=== PATIENT | female | born 1990 | race Caucasian/White ===

== ENCOUNTER 2021-01-08 23:11 | Emergency (ER) | payer OTHER ==
[~2021-01-08] VITALS: Ht 157.5 cm; Wt 61.2 kg
[~2021-01-08 23:11] MED LIST: ACEBUTCAFT PO; ACET325 PO; AMOX875 PO; AZIT250 PO; CEFD300 PO; CIPR500 PO; Cyclobenzaprine5 MG PO; Cymbalta60 MG PO; DOXY100 PO; DULO30; HYDACE5 PO; IBUP600 PO; IBUP800 PO; LITH300C; LITH300C PO; METR500 PO; MULVITMINE PO; OXYACE5T PO; PROM25 PO; PROM25S PR; Percocet 5-3251 EACH PO; RXOXYACE PO; TRAM50 PO; Zofran4 MG PO
== END 2021-01-09 00:22 | disposition home or self-care (01) ==
LOC: ER 23:11
DX: Z46.89 Encounter for fitting and adjustment of other specified devices (principal); Z88.5 Allergy status to narcotic agent; Z79.3 Long term (current) use of hormonal contraceptives; Z88.8 Allergy status to other drugs, medicaments and biological substances; Z79.899 Other long term (current) drug therapy; F17.200 Nicotine dependence, unspecified, uncomplicated
CPT/HCPCS: 29125; 29705; 99282-25

== ENCOUNTER 2021-11-07 11:55 | Emergency (ER) | payer OTHER ==
[~2021-11-07] VITALS: Ht 157.5 cm; Wt 61.2 kg
[2021-11-07] MEDS ORDERED: KETO10 PO (13:33)
== END 2021-11-07 13:58 | disposition home or self-care (01) ==
LOC: ER 11:55
DX: I73.00 Raynaud's syndrome without gangrene (principal); F17.200 Nicotine dependence, unspecified, uncomplicated; Z88.5 Allergy status to narcotic agent
CPT/HCPCS: 93922; 99284-25

== ENCOUNTER 2022-02-01 01:37 | Emergency (ER) | payer OTHER ==
[~2022-02-01] VITALS: Ht 170.2 cm; Wt 63.5 kg
[~2022-02-01 01:37] MED LIST changes: +KETO10 PO
[2022-02-01 02:06] LABS: BASOPHILS ABSOLUTE AUTO 0.06 K/mm3 (0.00-0.23); BASOPHILS PERCENT AUTO 1 % (0-2); EOSINOPHILS ABSOLUTE AUTO 0.27 K/mm3 (0.00-0.68); EOSINOPHILS PERCENT AUTO 3 % (0-6); IMMATURE GRAN ABSOLUTE AUTO 0.03 K/mm3 (0.00-0.10); IMMATURE GRAN PERCENT AUTO 0 % (0-1); LYMPHOCYTES ABSOLUTE AUTO 3.05 K/mm3 (0.84-5.20); LYMPHOCYTES PERCENT AUTO 39 % (21-46); MONOCYTES ABSOLUTE AUTO 0.56 K/mm3 (0.16-1.47); MONOCYTES PERCENT AUTO 7 % (4-13); Mean Corpuscular HGB 31.6 pg (26.0-34.0); Mean Corpuscular HGB Conc 33.3 g/dL (31.5-36.5); Mean Corpuscular Volume 95 fL (80-100); Mean Platelet Volume 11.7 fL (9.1-12.4); NEUTROPHILS ABSOLUTE AUTO 3.95 K/mm3 (1.96-9.15); NEUTROPHILS PERCENT AUTO 50 % (41-73); Platelet Count 175 K/mm3 (150-400); RDW Standard Deviation 49.1 fL (35.1-46.3); Red Blood Cell Count 4.43 M/mm3 (3.80-5.20); White Blood Cell Count 7.92 K/mm3 (4.00-11.30)
[2022-02-01 02:19] LABS: Albumin, Blood 3.5 g/dL (3.4-5.0); Albumin/Globulin Ratio 0.8 (0.8-1.8); Bilirubin, Total 0.1 mg/dL (0.1-1.0); Bun/Creatinine Ratio 14.9 (12.0-20.0); Calcium, Blood 8.4 mg/dL (8.5-10.1); Creatinine, Blood 0.87 mg/dL (0.40-1.00); Globulin, Blood 4.2 g/dL (2.2-4.0); Potassium, Blood 3.6 mmol/L (3.5-5.5); Total Protein, Blood 7.7 g/dL (6.4-8.2)
== END 2022-02-01 05:45 | disposition left against medical advice (07) ==
LOC: ER 01:37
PROVIDERS: Student in an Organized Health Care Education/Training Program
DX: F10.129 Alcohol abuse with intoxication, unspecified (principal); F17.210 Nicotine dependence, cigarettes, uncomplicated; Y90.6 Blood alcohol level of 120-199 mg/100 ml; Z53.21 Procedure and treatment not carried out due to patient leaving prior to being seen by health care provider; Z88.5 Allergy status to narcotic agent; Z88.8 Allergy status to other drugs, medicaments and biological substances; Z79.899 Other long term (current) drug therapy
CPT/HCPCS: 70450; 80053; 84703; 85025; 99284-25; G0480

== ENCOUNTER 2022-05-05 20:39 | Emergency (ER) | payer OTHER ==
[~2022-05-05] VITALS: Ht 157.5 cm; Wt 59.0 kg
[2022-05-05 21:33] LABS: BASOPHILS ABSOLUTE AUTO 0.06 K/mm3 (0.00-0.23); BASOPHILS PERCENT AUTO 1 % (0-2); EOSINOPHILS ABSOLUTE AUTO 0.33 K/mm3 (0.00-0.68); EOSINOPHILS PERCENT AUTO 4 % (0-6); Hematocrit 41.8 % (33.0-51.0); Hemoglobin 13.9 g/dL (11.5-16.0); IMMATURE GRAN ABSOLUTE AUTO 0.02 K/mm3 (0.00-0.10); IMMATURE GRAN PERCENT AUTO 0 % (0-1); LYMPHOCYTES ABSOLUTE AUTO 3.75 K/mm3 (0.84-5.20); LYMPHOCYTES PERCENT AUTO 42 % (21-46); MONOCYTES ABSOLUTE AUTO 0.56 K/mm3 (0.16-1.47); MONOCYTES PERCENT AUTO 6 % (4-13); Mean Corpuscular HGB 30.4 pg (26.0-34.0); Mean Corpuscular HGB Conc 33.3 g/dL (31.5-36.5); Mean Corpuscular Volume 92 fL (80-100); Mean Platelet Volume 11.5 fL (9.1-12.4); NEUTROPHILS ABSOLUTE AUTO 4.17 K/mm3 (1.96-9.15); NEUTROPHILS PERCENT AUTO 47 % (41-73); Platelet Count 231 K/mm3 (150-400); RDW Coefficient Variation 12.8 % (11.7-14.2); RDW Standard Deviation 43.1 fL (35.1-46.3); Red Blood Cell Count 4.57 M/mm3 (3.80-5.20); White Blood Cell Count 8.89 K/mm3 (4.00-11.30)
[2022-05-05 21:54] LABS: Alanine Aminotransfer (ALT/SGP 19 U/L (12-78); Albumin, Blood 3.8 g/dL (3.4-5.0); Alk Phos 70 U/L (50-136); Anion Gap 6 mmol/L (6-16); Aspartate Aminotrans (AST/SGOT 17 U/L (12-37); Beta HCG, Quantitative, Serum <1 mIU/mL (0-3); Bilirubin, Total 0.3 mg/dL (0.1-1.0); Blood Urea Nitrogen 7 mg/dL (8-24); Bun/Creatinine Ratio 9.7 (12.0-20.0); CO2, Blood 26 mmol/L (21-32); Chloride, Blood 106 mmol/L (98-108); Creatinine, Blood 0.72 mg/dL (0.40-1.00); Globulin, Blood 3.9 g/dL (2.2-4.0); Glomerular Filtration Rate 114 (60-); Glucose, Blood 110 mg/dL (70-99); Potassium, Blood 3.6 mmol/L (3.5-5.5); Sodium, Blood 138 mmol/L (136-145); Total Protein, Blood 7.7 g/dL (6.4-8.2)
[2022-05-05 23:08] LABS: Source, Urine Voided
[2022-05-05 23:13] LABS: Bilirubin, Urine Neg (Neg); Blood, Urine Neg (Neg); Glucose Qualitative, Urine Neg (Neg); Ketones, Urine Neg (Neg); Leukocyte Esterase, Urine 2+ (Neg); Nitrite, Urine Neg (Neg); Protein, Urine Neg (Neg); Specific Gravity, Urine 1.005 (1.003-1.022); Urobilinogen, Urine NORM (Normal); pH, Urine 6.5 (5.0-8.0)
[2022-05-05 23:34] LABS: Appearance, Urine Hazy (Clear); Color, Urine Yellow (P-Yellow)
[2022-05-05 23:36] LABS: Bacteria Mod /hpf; Mucus Light (0-Heavy); Red Blood Cells, Urine Not Seen /hpf (0-2); Squamous Epithelial Cells Few /hpf (Few); White Blood Cells, Urine 0-2 /hpf (0-5)
== END 2022-05-06 | disposition home or self-care (01) ==
LOC: ER 20:39
PROVIDERS: Emergency Medicine; Physician Assistant
DX: R10.2 Pelvic and perineal pain (principal); F17.210 Nicotine dependence, cigarettes, uncomplicated; Z79.899 Other long term (current) drug therapy; Z88.5 Allergy status to narcotic agent; Z88.8 Allergy status to other drugs, medicaments and biological substances; Z98.51 Tubal ligation status
CPT/HCPCS: 36415; 76801; 76817; 80053; 81001; 84702; 85025; 86900; 86901; 87086; 96374; 99284-25; J2405

== ENCOUNTER → 2022-05-14 | Outpatient (CLI) | payer OTHER | END | disposition home or self-care (01) | LOC: LAB SHORT 12:58 | DX: R11.2 Nausea with vomiting, unspecified (principal) | CPT/HCPCS: 84702 ==

== ENCOUNTER → 2022-10-20 | Outpatient (CLI) | payer OTHER ==
[2022-10-21 12:56] LABS: Candida species (DNA Probe) Negative (NEGATIVE); G. vaginalis (DNA Probe) Positive (NEGATIVE); T. vaginalis (DNA Probe) Negative (NEGATIVE)
[2022-10-23 02:09] LABS: CHLAMYDIA TRACHOMATIS, NAA Negative (Negative)
== END | disposition home or self-care (01) ==
LOC: LAB 16:41 → LAB SHORT 16:41
PROVIDERS: Physician Assistant
DX: R10.2 Pelvic and perineal pain (principal)
CPT/HCPCS: 87480; 87491; 87510; 87591; 87660

== ENCOUNTER 2022-10-25 23:17 | Emergency (ER) | payer OTHER ==
[~2022-10-25] VITALS: Ht 157.5 cm; Wt 63.5 kg
[2022-10-26] MEDS ORDERED: IBUP400 PO (01:00)
[2022-10-26] MEDS ORDERED: OXYC5 PO (01:00)
[2022-10-26] MEDS ORDERED: ACET500 PO (01:00)
== END 2022-10-26 01:41 | disposition home or self-care (01) ==
LOC: ER 23:17
DX: S52.571A Other intraarticular fracture of lower end of right radius, initial encounter for closed fracture (principal); S52.611A Displaced fracture of right ulna styloid process, initial encounter for closed fracture; F17.210 Nicotine dependence, cigarettes, uncomplicated; W18.09XA Striking against other object with subsequent fall, initial encounter; Z88.5 Allergy status to narcotic agent; Z88.8 Allergy status to other drugs, medicaments and biological substances; Z79.899 Other long term (current) drug therapy
CPT/HCPCS: 29125; 73090; 73100; 96372; 99283-25; A9270; J1885

== ENCOUNTER → 2023-06-11 | Outpatient (CLI) | payer OTHER ==
[~2023-06-11] MED LIST changes: +ACET500 PO; +IBUP400 PO; +OXYC5 PO
== END ==
LOC: LAB 16:59 → LAB SHORT 16:59
DX: N64.52 Nipple discharge (principal)
CPT/HCPCS: 87070; 87205

== ENCOUNTER 2023-07-17 19:21 | Emergency (ER) | payer OTHER ==
[~2023-07-17] VITALS: Ht 157.5 cm; Wt 63.5 kg
[2023-07-17 19:57] VITALS: BP 150/88
== END 2023-07-17 21:09 | disposition home or self-care (01) ==
LOC: ER 19:21
DX: M25.531 Pain in right wrist (principal); F17.210 Nicotine dependence, cigarettes, uncomplicated; F31.9 Bipolar disorder, unspecified; Z87.81 Personal history of (healed) traumatic fracture; Z79.899 Other long term (current) drug therapy; Z88.5 Allergy status to narcotic agent; Z88.1 Allergy status to other antibiotic agents; Z88.8 Allergy status to other drugs, medicaments and biological substances
CPT/HCPCS: 29125; 99282-25

== ENCOUNTER 2023-08-04 21:29 | Inpatient (IN) | payer OTHER ==
[~2023-08-04] VITALS: Ht 157.5 cm; Wt 63.7 kg
[2023-08-04 22:20] LABS: BASOPHILS ABSOLUTE AUTO 0.03 K/mm3 (0.00-0.23); BASOPHILS PERCENT AUTO 0 % (0-2); EOSINOPHILS ABSOLUTE AUTO 0.19 K/mm3 (0.00-0.68); EOSINOPHILS PERCENT AUTO 3 % (0-6); Hemoglobin 14.6 g/dL (11.5-16.0); Mean Corpuscular HGB 30.4 pg (26.0-34.0); Mean Corpuscular HGB Conc 32.4 g/dL (31.5-36.5); Mean Corpuscular Volume 94 fL (80-100); Mean Platelet Volume 11.5 fL (9.1-12.4); Platelet Count 211 K/mm3 (150-400); RDW Coefficient Variation 13.2 % (11.7-14.2); RDW Standard Deviation 45.5 fL (35.1-46.3)
[2023-08-04 22:27] LABS: IMMATURE GRAN ABSOLUTE AUTO 0.02 K/mm3 (0.00-0.10); IMMATURE GRAN PERCENT AUTO 0 % (0-1); LYMPHOCYTES ABSOLUTE AUTO 3.24 K/mm3 (0.84-5.20); LYMPHOCYTES PERCENT AUTO 43 % (21-46); MONOCYTES ABSOLUTE AUTO 0.42 K/mm3 (0.16-1.47); MONOCYTES PERCENT AUTO 6 % (4-13); NEUTROPHILS PERCENT AUTO 49 % (41-73)
[2023-08-04 22:43] LABS: Ethanol (Alcohol), Blood, Med 282 mg/dL
[2023-08-04 22:47] LABS: Alanine Aminotransfer (ALT/SGP 19 U/L (12-78); Albumin, Blood 3.9 g/dL (3.4-5.0); Albumin/Globulin Ratio 0.9 (0.8-1.8); Alk Phos 64 U/L (50-136); Anion Gap 5 mmol/L (6-16); Aspartate Aminotrans (AST/SGOT 14 U/L (12-37); Bilirubin, Total <0.1 mg/dL (0.1-1.0); Blood Urea Nitrogen 12 mg/dL (8-24); Bun/Creatinine Ratio 16.2 (12.0-20.0); CO2, Blood 24 mmol/L (21-32); Calcium, Blood 8.6 mg/dL (8.5-10.1); Chloride, Blood 114 mmol/L (98-108); Creatinine, Blood 0.74 mg/dL (0.40-1.00); Globulin, Blood 4.4 g/dL (2.2-4.0); Glomerular Filtration Rate 109 (60-); Glucose, Blood 105 mg/dL (70-99); Potassium, Blood 3.9 mmol/L (3.5-5.5); Sodium, Blood 143 mmol/L (136-145); Total Protein, Blood 8.3 g/dL (6.4-8.2)
[2023-08-05 03:29] LABS: Source, Urine Clean Catch
[2023-08-05 03:33] LABS: Bilirubin, Urine Neg (Neg); Blood, Urine Neg (Neg); Glucose Qualitative, Urine Neg (Neg); Ketones, Urine Neg (Neg); Leukocyte Esterase, Urine Neg (Neg); Nitrite, Urine Neg (Neg); Protein, Urine Neg (Neg); Urobilinogen, Urine NORM (Normal)
[2023-08-05 03:46] LABS: Appearance, Urine Clear (Clear); Color, Urine Yellow (P-Yellow)
[2023-08-05 04:00] LABS: U Amphetamine Screen Not Detected; U Barbituate Screen Not Detected; U Benzodiazapine Screen Not Detected; U Buprenorphine Screen Not Detected; U Cannabinoids Screen Not Detected; U Cocaine Screen Not Detected; U Methadone Screen Not Detected; U Methamphetamine Screen Not Detected; U Opiates Screen Not Detected; U Oxycodone Screen Not Detected; U Phencyclidine Screen Not Detected
[2023-08-05 18:43] VITALS: BP 142/95
[2023-08-05] MEDS ORDERED: DULO60 PO (19:28)
[2023-08-05 19:32] VITALS: BP 143/91
[2023-08-06 05:08] VITALS: BP 146/89
--- NOTE | 2023-08-06 05:59 | NUR ---
SHIFT SUMMARY PT IS A&OX4, PLEASANT AND COOPERATIVE WITH ALL CARES. VSS, ELEVATED BP, ON RA. NSR IN THE 70'S-80'S PER TELEMETRY. HAS SOME EXPRESIVE APHASIA AND STUTTERING WHEN COMMUNICATING. NO FACIAL DROOP. STRENGTHS EQUAL IN ALL EXTREMETIES. C/O AN EXTREME FRENCH. HAS FREQUENT MIGRAINES, THIS HAS BEEN ONGOING FOR LAST 3 DAYS. NOTHING SHE HAS TAKEN OVER THE COUNTER AT HOME HAS HELPED. SHE WENT FOR A MRI AROUND 2200. I GAVE HER SOME ATIVAN PRIOR TO GOING D/T BEING CLAUSTROPHOBIC AND HAVING SUCH A BAD FRENCH. PT IS INDEPENDENT IN ROOM. ARA AT BEDSIDE T/O NOC ATTENDING TO PT. BED IN LOWEST POSITION, CALL LIGHT WITHIN REACH. SITTER AT BEDSIDE FOR SI, PT DENIES THIS. SLEPT T/O NOC.
[2023-08-06 07:36] VITALS: BP 140/78
[2023-08-06 07:39] LABS: BASOPHILS ABSOLUTE AUTO 0.05 K/mm3 (0.00-0.23); BASOPHILS PERCENT AUTO 1 % (0-2); EOSINOPHILS ABSOLUTE AUTO 0.21 K/mm3 (0.00-0.68); EOSINOPHILS PERCENT AUTO 4 % (0-6); Hematocrit 39.7 % (33.0-51.0); Hemoglobin 13.1 g/dL (11.5-16.0); IMMATURE GRAN ABSOLUTE AUTO 0.01 K/mm3 (0.00-0.10); IMMATURE GRAN PERCENT AUTO 0 % (0-1); LYMPHOCYTES ABSOLUTE AUTO 2.35 K/mm3 (0.84-5.20); LYMPHOCYTES PERCENT AUTO 39 % (21-46); MONOCYTES ABSOLUTE AUTO 0.64 K/mm3 (0.16-1.47); MONOCYTES PERCENT AUTO 11 % (4-13); Mean Corpuscular HGB 30.8 pg (26.0-34.0); Mean Corpuscular Volume 93 fL (80-100); Mean Platelet Volume 11.9 fL (9.1-12.4); NEUTROPHILS ABSOLUTE AUTO 2.77 K/mm3 (1.96-9.15); NEUTROPHILS PERCENT AUTO 46 % (41-73); Platelet Count 181 K/mm3 (150-400); RDW Standard Deviation 44.3 fL (35.1-46.3); Red Blood Cell Count 4.26 M/mm3 (3.80-5.20); White Blood Cell Count 6.03 K/mm3 (4.00-11.30)
[2023-08-06 07:59] LABS: Albumin, Blood 3.1 g/dL (3.4-5.0); Albumin/Globulin Ratio 0.8 (0.8-1.8); Bilirubin, Total 0.1 mg/dL (0.1-1.0); Calcium, Blood 8.8 mg/dL (8.5-10.1); Creatinine, Blood 0.77 mg/dL (0.40-1.00); Globulin, Blood 3.8 g/dL (2.2-4.0); Potassium, Blood 4.1 mmol/L (3.5-5.5); Total Protein, Blood 6.9 g/dL (6.4-8.2)
--- NOTE | 2023-08-06 14:21 | NUR ---
MULTIPLE PHONE CALLS THIS AM TO DR PAIGE AND DR ELLIOTT REGARDING PATIENT AND HER REQUESTS. PAIN 8/10 THIS AM, DR PAIGE NOTIFIED, TORADOL AND TYLENOL ORDERED, WITH LITTLE RELIEF TO 7.5/10. DR PAIGE NOTIFIED AND OXYCODONE ORDERED, MEDICATION GIVE, PAIN DOWN TO 5/10 BUT PATIENT NOW NAUSEOUS, DR PAIGE ORDERED ZOFRAN IV, MEDICATION GIVEN. PATIENT REPORTS RELIEF AND ABLE TO EAT LUNCH. PATIENT AGREABLE WITH CARE TODAY EXCEPT SHE DECLINES LOVENOX SHOT, STATES SHE DOES NOT LIKE TO BE POKED WITH NEEDLES. PATIENT CONTINUES TO REQUEST THE MD HOLD BE LIFTED. DR ELLIOTT STATES HOLD STILL NEEDED WHEN I SPOKE WITH HIM THIS MORNING. PATIENT NOTIFIED AND REQUESTS TO SPEAK WITH DR BUI. DR ELLIOTT NOTIFIED AND STATES HE WILL BE IN SOMETIME AFTER LUNCH.
[2023-08-06 15:40] VITALS: BP 149/96
--- NOTE | 2023-08-06 18:04 | NUR ---
SHIFT SUMMARY PATIENT HAS BEEN AGREABLE AND COOPERATIVE WITH CARE. SHE HAS SOME ANXIETY REGARDING THE HOLD WHICH WAS PLACED YESTERDAY. PATIENT WITH CONTINUED MIGRAINE TODAY WHICH DECREASES WITH OXYCODONE/TYLENOL BUT ONLY FROM 03/31 TO 11/28, AND PATIENT GETS NAUSEOUS AFTER, REQUIRING ZOFRAN. PATIENT ALSO HAS HAD LITTLE APPETITE AND REPORTS NOT EATING MUCH MORE THAN EGGS TODAY. FIRST AID ATTENDANT RECCOMENDED EATING PRIOR TO MEDICATIONS NEXT TIME TO SEE IF IT HELPS PREVENT THE NAUSEA. PATIENT VERBALIZES UNDERSTANDING. PATIENT TRYING YOGURT CURRENTLY. DR DOS SANTOS ARRIVED THIS AFTERNOON, PATIENT REQUESTING PRESENCE OF ANOTHER PERSON FOR VISIT. THIS FIRST AID ATTENDANT SAT IN FOR VISIT. DR ELLIOTT EXPLAINED TO PATIENT HIS CONCERNS WITH HER SAFETY AND WHY HE PUT HER ON A HOLD. PATIENT REQUESTED TO BE TAKEN OFF THE HOLD AND DR BORJAS WAS AGREABLE DUE TO PAITIENT SYMPTOMS RESOLVING COMPARED TO YESTERDAY. PATIENT CONTINUES WITH OCCAISIONAL STUTTER, AND MIGRAINE. ALL OTHER NEURO CHECKS WIHIN NORMAL LIMITS. BED IN LOW POSITION, SITTER CALLED OFF AT END OF HOLD, CALL LIGHT IN REACH. PATIENT ABLE TO MAKE NEEDS KNOWN.
[2023-08-06 18:29] LABS: Magnesium, Blood 2.1 mg/dL (1.6-2.4); Phosphorus, Blood 3.9 mg/dL (2.5-4.9)
[2023-08-06 20:27] VITALS: BP 151/96
[2023-08-07 05:04] VITALS: BP 124/92
--- NOTE | 2023-08-07 06:11 | NUR ---
SHIFT SUMMARY PT IS A&OX4. VSS, ELEVATED BP ON RA. C/O 02/28 HEADACHE PAIN. MANAGED WITH PRN MEDICATIONS PER EMAR. TOLERATING A REGULAR DIET. UP AD ALYSSA INDEPENDENTLY IN ROOM AND FLOOR. PT ASKED IF SHE COULD GO OUTSIDE, I TOLD HER THAT WASN'T ALLOWED. SHE UNDERSTOOD AND WAS COOPERATIVE WITH RULES. VOIDING IN BR. AT BEDSIDE T/O NOC. BED IN LOWEST POSITION, CALL LIGHT WITHIN REACH.
[2023-08-07 06:34] LABS: Hematocrit 40.2 % (33.0-51.0); Hemoglobin 13.3 g/dL (11.5-16.0); Mean Corpuscular HGB 30.4 pg (26.0-34.0); Mean Corpuscular HGB Conc 33.1 g/dL (31.5-36.5); Mean Corpuscular Volume 92 fL (80-100); Mean Platelet Volume 11.9 fL (9.1-12.4); Platelet Count 180 K/mm3 (150-400); RDW Coefficient Variation 12.7 % (11.7-14.2); RDW Standard Deviation 42.9 fL (35.1-46.3); Red Blood Cell Count 4.37 M/mm3 (3.80-5.20); White Blood Cell Count 5.95 K/mm3 (4.00-11.30)
[2023-08-07 06:59] LABS: Bun/Creatinine Ratio 19.2 (12.0-20.0); Calcium, Blood 8.8 mg/dL (8.5-10.1); Creatinine, Blood 0.78 mg/dL (0.40-1.00); Potassium, Blood 4.2 mmol/L (3.5-5.5)
[2023-08-07 07:37] VITALS: BP 127/88
[2023-08-07 08:56] LABS: BASOPHILS PERCENT MAN 0 % (0-2); EOSINOPHILS ABSOLUTE MAN 0.35 K/mm3 (0.00-0.68); EOSINOPHILS PERCENT MAN 6 % (0-6); LYMPHOCYTES ABSOLUTE MAN 3.03 K/mm3 (0.84-5.20); LYMPHOCYTES PERCENT MAN 51 % (21-46); MONOCYTES ABSOLUTE MAN 0.77 K/mm3 (0.16-1.47); MONOCYTES PERCENT MAN 13 % (4-13); NEUTROPHILS ABSOLUTE MAN 1.78 K/mm3 (1.96-9.15); SEG NEUTROPHILS PERCENT MAN 30 % (41-73); TOTAL CELLS COUNTED 100
--- NOTE | 2023-08-07 11:18 | NUR ---
FOLIC ACID INFUSING WHEN IV BECAME OCCLUDED, UNABLE TO KEEP IV IN. DR PAIGE MADE AWARE AND HE ORDERED ORAL FOLIC ACID AND THIAMINE INSTEAD, AND TO REPLACE IV.
[2023-08-07 11:39] VITALS: BP 145/91
[2023-08-07 12:29] VITALS: BP 146/94
[2023-08-07 13:18] VITALS: BP 142/92
[2023-08-07 14:51] LABS: BASOPHILS ABSOLUTE AUTO 0.04 K/mm3 (0.00-0.23); BASOPHILS PERCENT AUTO 1 % (0-2); EOSINOPHILS ABSOLUTE AUTO 0.17 K/mm3 (0.00-0.68); EOSINOPHILS PERCENT AUTO 2 % (0-6); Hematocrit 40.1 % (33.0-51.0); Hemoglobin 13.6 g/dL (11.5-16.0); IMMATURE GRAN ABSOLUTE AUTO 0.01 K/mm3 (0.00-0.10); IMMATURE GRAN PERCENT AUTO 0 % (0-1); LYMPHOCYTES ABSOLUTE AUTO 2.38 K/mm3 (0.84-5.20); LYMPHOCYTES PERCENT AUTO 34 % (21-46); MONOCYTES ABSOLUTE AUTO 0.63 K/mm3 (0.16-1.47); MONOCYTES PERCENT AUTO 9 % (4-13); Mean Corpuscular HGB Conc 33.9 g/dL (31.5-36.5); Mean Corpuscular Volume 91 fL (80-100); Mean Platelet Volume 11.7 fL (9.1-12.4); NEUTROPHILS ABSOLUTE AUTO 3.88 K/mm3 (1.96-9.15); NEUTROPHILS PERCENT AUTO 55 % (41-73); Platelet Count 190 K/mm3 (150-400); RDW Coefficient Variation 12.6 % (11.7-14.2); RDW Standard Deviation 42.8 fL (35.1-46.3); Red Blood Cell Count 4.39 M/mm3 (3.80-5.20); White Blood Cell Count 7.11 K/mm3 (4.00-11.30)
[2023-08-07 15:01] LABS: Base Excess Venous 1.9 mmol/L; Bicarbonate Venous 26.1 mmol/L (24.0-30.0); PCO2 Venous 37.9 mmHg (38-42); pH Blood Venous 7.44 (7.34-7.37)
[2023-08-07 15:24] LABS: Albumin, Blood 3.4 g/dL (3.4-5.0); Albumin/Globulin Ratio 0.8 (0.8-1.8); Bilirubin, Total 0.2 mg/dL (0.1-1.0); Bun/Creatinine Ratio 13.1 (12.0-20.0); Calcium, Blood 8.4 mg/dL (8.5-10.1); Magnesium, Blood 2.1 mg/dL (1.6-2.4); Phosphorus, Blood 2.8 mg/dL (2.5-4.9); Thyroid Stimulating Hormone 1.13 uIU/mL (0.360-4.800); Total Protein, Blood 7.4 g/dL (6.4-8.2)
[2023-08-07 16:18] LABS: Influenza A, PCR NEGATIVE (NEGATIVE); Influenza B, PCR NEGATIVE (NEGATIVE); Resp Syncytial Virus, PCR NEGATIVE (NEGATIVE); SARS-Cov-2 (COVID-19) PCR, MMC NEGATIVE (NEGATIVE)
--- NOTE | 2023-08-07 18:42 | NUR ---
SHIFT SUMMARY PATIENT WITH HEADACHE TODAY, MANAGED WITH OXYCODONE. THIS AFTERNOON VERAPAMIL ORDERED DUE TO HIGHER BLOOD PRESSURE. PATIENT MEDICATED WITH IT AND NO INITIAL SIDE EFFECTS. HER STUTTER WAS ALMOST NON EXISTENT FIRST HALF OF DAY. THIS AFTERNOON HOWEVER, RAPID RESPONSE WAS CALLED DUE TO NEUROLOICAL CHANGES SUDDEN ONSET. HEAD AND NECK CTA, BLOOD WORK, COVID SCREEN, AND MRI ORDERED BY DR PAIGE AND ROBE. PHONE CALL WAS PLACED TO DR PAIGE ABOUT PATIENT HISTORY OF CLAUSTROPHOBIA AND PATIENT REQUESTING ATIVAN JUST BEFORE MRI. ORDERED OKAY OF ONE TIME ATIVAN TO GIVE FROM [facility] ORDER. 2MG ATIVAN GIVEN. BED IN LOW POSITION, CALL LIGHT IN REACH. OF NOW PATIENT STATES HER HEADACHE IS ITS LOWEST IN DAYS AT 2/10, SHE STATES "ITS GOOD RIGHT NOW ACTUALLY". AT BEDSIDE.
--- NOTE | 2023-08-07 21:35 | NUR ---
HOSPITALIST CALLED WITH UPDATE FOR POSSIBLE PT TRANSFER TO [facility]. AWAITING HOSPITALIST CALL BACK AFTER SPEAKING TO FACILITY. UPDATE GIVEN ON PT NEURO STATUS PUPILS 4MM AND SLUGGISH, BUT NO L SIDED DEFICITS OR APHASIA CURRENTLY.
[2023-08-07 21:57] VITALS: BP 118/71
--- NOTE | 2023-08-07 23:07 | NUR ---
NOTIFIED BY HOSPITALIST THAT BED AVAILABLE AT [facility] IN [place] POOL FOR PT TO TRANSFER. PT REMAINS STABLE. HOSPITALIST WANTS TO BE NOTIFIED OF TRANSFER MD NAME SO TRANSFER ORDER CAN BE INITIATED.
[2023-08-08 00:01] VITALS: BP 118/71
[2023-08-08 00:35] VITALS: BP 118/71
--- NOTE | 2023-08-08 00:55 | NUR ---
PT BEING [place] TRANSFERRED TO [facility] IN [place]. REPORT GIVEN TO QUEENIE SERRANO @ 0028.
--- NOTE | 2023-08-08 01:03 | NUR ---
[facility] PICKED PT UP @ 0100 FOR TRANSPORT TO [facility] IN [place]. PT LEFT WITH ALL BELONGINGS WITH THEM.
== END 2023-08-08 01:03 | disposition short-term general hospital (02) | DRG 103 ==
LOC: ER 21:29 → MEDS 21:30
PROVIDERS: Emergency Medicine; Family Medicine; Student in an Organized Health Care Education/Training Program; ADMIT Internal Medicine
PROC: HZ2ZZZZ Detoxification Services for Substance Abuse Treatment (ICD-10-PCS; principal; 2023-08-05)
DX: G43.409 Hemiplegic migraine, not intractable, without status migrainosus (principal); R47.01 Aphasia; F31.9 Bipolar disorder, unspecified; F43.12 Post-traumatic stress disorder, chronic; F10.10 Alcohol abuse, uncomplicated; Z71.6 Tobacco abuse counseling; Z91.51 Personal history of suicidal behavior; Z88.8 Allergy status to other drugs, medicaments and biological substances; Z88.5 Allergy status to narcotic agent; Z88.1 Allergy status to other antibiotic agents; Z72.0 Tobacco use; Z11.52 Encounter for screening for COVID-19; R41.3 Other amnesia; Z79.899 Other long term (current) drug therapy
CPT/HCPCS: 0241U; 36415; 70450; 70496; 70498; 70551; 70553; 80048; 80053; 81001; 81003; 81025; 82803; 82947; 83735; 84100; 84443; 85025; 87086; 92523; 93005; 93010; 93306; 96360; 96361; 96365; 96372; 96375; 96376; 97116; 97161; 97165; 99284-25; 99285-25; A9270; A9579; G0378; G0480; J1885; J2060; J2405; J3411; J7030; Q9967

== ENCOUNTER 2024-02-03 14:27 | Emergency (ER) | payer OTHER ==
[~2024-02-03] VITALS: Ht 157.5 cm; Wt 65.8 kg
[~2024-02-03 14:27] MED LIST changes: +DULO60 PO
[2024-02-03 14:42] VITALS: BP 154/110
[2024-02-03] MEDS ORDERED: Ondansetron HCl 2 MG / ML 2ML Vial IV ONE ×2 (14:55→15:50)
[2024-02-03 15:12] LABS: BASOPHILS ABSOLUTE AUTO 0.05 K/mm3 (0.00-0.23); BASOPHILS PERCENT AUTO 1 % (0-2); EOSINOPHILS ABSOLUTE AUTO 0.15 K/mm3 (0.00-0.68); EOSINOPHILS PERCENT AUTO 2 % (0-6); Hematocrit 43.6 % (33.0-51.0); Hemoglobin 14.9 g/dL (11.5-16.0); IMMATURE GRAN ABSOLUTE AUTO 0.03 K/mm3 (0.00-0.10); IMMATURE GRAN PERCENT AUTO 0 % (0-1); LYMPHOCYTES ABSOLUTE AUTO 2.87 K/mm3 (0.84-5.20); LYMPHOCYTES PERCENT AUTO 35 % (21-46); MONOCYTES ABSOLUTE AUTO 0.47 K/mm3 (0.16-1.47); MONOCYTES PERCENT AUTO 6 % (4-13); Mean Corpuscular HGB 30.8 pg (26.0-34.0); Mean Corpuscular HGB Conc 34.2 g/dL (31.5-36.5); Mean Corpuscular Volume 90 fL (80-100); Mean Platelet Volume 11.7 fL (9.1-12.4); NEUTROPHILS ABSOLUTE AUTO 4.72 K/mm3 (1.96-9.15); NEUTROPHILS PERCENT AUTO 57 % (41-73); Platelet Count 214 K/mm3 (150-400); RDW Coefficient Variation 13.2 % (11.7-14.2); RDW Standard Deviation 43.2 fL (35.1-46.3); Red Blood Cell Count 4.84 M/mm3 (3.80-5.20); White Blood Cell Count 8.29 K/mm3 (4.00-11.30)
[2024-02-03 15:39] LABS: Albumin/Globulin Ratio 0.9 (0.8-1.8); Bilirubin, Total 0.5 mg/dL (0.1-1.0); Bun/Creatinine Ratio 13.6 (12.0-20.0); Calcium, Blood 10.3 mg/dL (8.5-10.1); Creatinine, Blood 0.74 mg/dL (0.40-1.00); Globulin, Blood 4.6 g/dL (2.2-4.0); Potassium, Blood 4.2 mmol/L (3.5-5.5); Total Protein, Blood 8.6 g/dL (6.4-8.2)
[2024-02-03] MEDS ORDERED: FentaNYL Citrate 50 MCG/ML 2 ML Injection IV ONE (15:50)
[2024-02-03] MEDS ORDERED: Lactated Ringer's 500 ML IV ONE (15:50)
[2024-02-03] MEDS ORDERED: Lidocaine 2% Viscous Soln 15 ML UDC PO ONE (17:00)
[2024-02-03] MEDS ORDERED: Atropine/Scopalam/Hyoscam/PB 5 ML UDC PO ONE (17:00)
[2024-02-03] MEDS ORDERED: Mag Hydrox/AL Hydrox/Simeth 30 ML UDC PO ONE (17:00)
[2024-02-03] MEDS ORDERED: ONDA4ODT MM (17:11)
== END 2024-02-03 17:16 | disposition home or self-care (01) ==
LOC: ER 14:27
PROVIDERS: Physician Assistant
DX: K27.9 Peptic ulcer, site unspecified, unspecified as acute or chronic, without hemorrhage or perforation (principal); A08.4 Viral intestinal infection, unspecified; F10.10 Alcohol abuse, uncomplicated; F31.9 Bipolar disorder, unspecified; F17.210 Nicotine dependence, cigarettes, uncomplicated; Z88.5 Allergy status to narcotic agent; Z88.1 Allergy status to other antibiotic agents; Z88.8 Allergy status to other drugs, medicaments and biological substances; Z91.048 Other nonmedicinal substance allergy status; Z79.899 Other long term (current) drug therapy
CPT/HCPCS: 80053; 83690; 84703; 85025; 96361; 96374; 96375; 96376; 99284-25; A9270; J2405; J3010; J7120

== ENCOUNTER 2024-07-11 18:34 | Emergency (ER) | payer OTHER ==
[~2024-07-11] VITALS: Ht 165.1 cm; Wt 72.6 kg
[~2024-07-11 18:34] MED LIST changes: +ONDA4ODT MM
[2024-07-11 19:03] VITALS: BP 147/88
[2024-07-11] MEDS ORDERED: DiphenhydrAMINE HCl 50 MG/ML 1ML Vial IV ONE (22:15)
[2024-07-11] MEDS ORDERED: Ketorolac Tromethamine 30mg Vial IV ONE (22:15)
[2024-07-11] MEDS ORDERED: Prochlorperazine Edisylate 10 mg Vial IV ONE (22:15)
[2024-07-11] MEDS ORDERED: NS 1,000 ML IV SCH (22:15)
== END 2024-07-11 22:44 | disposition home or self-care (01) ==
LOC: ER 18:34
DX: G43.909 Migraine, unspecified, not intractable, without status migrainosus (principal); F17.210 Nicotine dependence, cigarettes, uncomplicated; Z79.899 Other long term (current) drug therapy; Z88.5 Allergy status to narcotic agent; Z88.8 Allergy status to other drugs, medicaments and biological substances; Z91.09 Other allergy status, other than to drugs and biological substances
CPT/HCPCS: 70450; 96374; 96375; 99283-25; J0780; J1200; J1885; J7030